=== PATIENT | female | born 1995 | race Two or more races ===

== ENCOUNTER 2021-04-07 05:18 | Day surgery (SDC) | payer OTHER | END 2021-04-07 11:45 | disposition home or self-care (01) | LOC: CIR.AMB 05:18 | PROVIDERS: ATTEND Specialist | DX: L72.0 Epidermal cyst (principal); Z20.822 Contact with and (suspected) exposure to COVID-19 ==

== ENCOUNTER 2021-12-08 08:00 | Outpatient (CLI) | payer OTHER | END 2021-12-08 08:30 | disposition home or self-care (01) | LOC: PPH VACUNA 08:00 | PROVIDERS: ATTEND Emergency Medicine Pediatric Emergency Medicine | DX: Z23 Encounter for immunization (principal) ==